=== PATIENT | male | born 1990 | race Caucasian/White ===

== ENCOUNTER 2023-06-16 23:26 | Inpatient (IN) | payer OTHER, SELFPAY ==
[2023-06-16 19:11] VITALS: BP 125/98
--- NOTE | 2023-06-16 20:25 | ED.GENMED ---
History of Present Illness
<Sukhdeep Garcia PA-C - Last Filed: 06/16/23 23:10>
General
Chief Complaint: Skin Problem
Time Seen by Provider: 06/16/23 19:43
Travel History
Have you had any contact with someone who has COVID-19?: No
Do you have any symptoms of coronavirus? Fever > 100 degrees, chills, cough, shortness of breath, sore throat, loss of taste or smell, muscle aches, or headache?: No
History of Present Illness
History of Present Illness:
33-year-old male with history of IV drug abuse (last use 1 week ago) presents to the emergency department for evaluation of right leg pain and swelling and redness developing 2 days ago. Denies any traumatic injuries and denies any injection into
the foot or leg. No fevers or chills. He is unable to bear weight on the leg due to pain. Denies any nausea, vomiting, or diarrhea.
Review of Systems
<Sukhdeep Garcia PA-C - Last Filed: 06/16/23 23:10>
Review of Systems
Allergies reviewed?: Yes
All Other Systems: ROS reviewed and negative except as documented in HPI and ROS
Phy Exam
<Sukhdeep Garcia PA-C - Last Filed: 06/16/23 23:10>
Physical Exam
Physical Exam:
GEN: Well appearing, NAD, WDWN
HEENT: Oral mucosa moist, no scleral icterus
Cardiac: Regular rate and rhythm
Lung: No respiratory distress, no tachypnea
MSK: Severe erythema to the anterior and lateral right lower leg with significant edema. There is no palpable crepitus, moderate tenderness diffusely to the leg. There is no rigidity to the compartments anteriorly however there is pain with
passive stretching of the right ankle anteriorly. Right dorsalis pedis pulses strong, sensation intact
Skin: Good color, no pallor or jaundice, no rashes
Neuro: AO x3, moves all extremities freely
Psych: Calm, cooperative
Course
<Sukhdeep Garcia PA-C - Last Filed: 06/16/23 23:10>
Orders/Labs/Results
Orders:
Orders
06/16/23 19:58
CT Lower Ext W/iv Cont Rt Urgent
Comment:
Reason For Exam: RLE cellulitis, concern for fasciitis
Piperacillin/Tazo 3.375 Gram [Zosyn] 3.375 gram in 50 ml IV NOW
06/16/23 21:02
Complete Blood Count/With Diff Urgent
Comprehensive Metabolic Panel Urgent
Lactic Acid Q4H
Comment: CANCEL 2nd LACTIC ACID IF 1st LACTIC ACID IS LESS THAN 2
Prothrombin Time Urgent
Blood Culture Q30M
FERN Source: Blood/Venous
Specimen Description:
06/16/23 21:31
Vancomycin [Vancocin] 1,500 mg 0.9% Sodium Chloride [Nss] 20 ml 0.9% Sodium Chloride 250 ml [Nss] 250 ml IV NOW
06/16/23 21:48
Blood Culture Q30M
FERN Source: Blood/Venous
Specimen Description:
Abnormal Lab Results
06/16/23
21:02
WBC 34.9 H 10^3/uL
(4.8-10.8)
RBC 4.58 L 10^6/uL
(4.70-6.10)
Hct 38.2 L %
(39.0-52.0)
Abs Immat Gran (auto) 0.4 H 10^3/uL
(0-0.05)
Absolute Neuts (auto) 30.3 H 10^3/uL
(1.4-6.5)
Absolute Monos (auto) 2.5 H 10^3/uL
(0.1-0.6)
Immature Gran % 1.1 H %
(0-0.5)
Neutrophils % 86.9 H %
(42.2-75.2)
Lymphocytes % 4.3 L %
(20.5-51.1)
PT 15.4 H Sec
(11.4-14.6)
Glucose 116 H mg/dl
(70-99)
06/16/23 21:02
06/16/23 21:02
Vital Signs
Initial and Last Documented VS:
Initial Vital Signs
Temp Pulse Resp BP Pulse Ox
98.1 F 103 16 125/98 95
06/16/23 19:11 06/16/23 19:11 06/16/23 19:11 06/16/23 19:11 06/16/23 19:11
Last Documented Vital Signs
Temp Pulse Resp BP Pulse Ox
98.1 F 103 16 125/98 95
06/16/23 19:11 06/16/23 19:11 06/16/23 19:11 06/16/23 19:11 06/16/23 19:11
<Rajani Hernandez, DO - Last Filed: 06/16/23 23:19>
Orders/Labs/Results
Orders:
Orders
06/16/23 19:58
CT Lower Ext W/iv Cont Rt Urgent
Comment:
Reason For Exam: RLE cellulitis, concern for fasciitis
Piperacillin/Tazo 3.375 Gram [Zosyn] 3.375 gram in 50 ml IV NOW
06/16/23 21:02
Complete Blood Count/With Diff Urgent
Comprehensive Metabolic Panel Urgent
Lactic Acid Q4H
Comment: CANCEL 2nd LACTIC ACID IF 1st LACTIC ACID IS LESS THAN 2
Prothrombin Time Urgent
Blood Culture Q30M
FERN Source: Blood/Venous
Specimen Description:
06/16/23 21:31
Vancomycin [Vancocin] 1,500 mg 0.9% Sodium Chloride [Nss] 20 ml 0.9% Sodium Chloride 250 ml [Nss] 250 ml IV NOW
06/16/23 21:48
Blood Culture Q30M
FERN Source: Blood/Venous
Specimen Description:
Abnormal Lab Results
06/16/23
21:02
WBC 34.9 H 10^3/uL
(4.8-10.8)
RBC 4.58 L 10^6/uL
(4.70-6.10)
Hct 38.2 L %
(39.0-52.0)
Abs Immat Gran (auto) 0.4 H 10^3/uL
(0-0.05)
Absolute Neuts (auto) 30.3 H 10^3/uL
(1.4-6.5)
Absolute Monos (auto) 2.5 H 10^3/uL
(0.1-0.6)
Immature Gran % 1.1 H %
(0-0.5)
Neutrophils % 86.9 H %
(42.2-75.2)
Lymphocytes % 4.3 L %
(20.5-51.1)
PT 15.4 H Sec
(11.4-14.6)
Glucose 116 H mg/dl
(70-99)
06/16/23 21:02
06/16/23 21:02
Vital Signs
Initial and Last Documented VS:
Initial Vital Signs
Temp Pulse Resp BP Pulse Ox
98.1 F 103 16 125/98 95
06/16/23 19:11 06/16/23 19:11 06/16/23 19:11 06/16/23 19:11 06/16/23 19:11
Last Documented Vital Signs
Temp Pulse Resp BP Pulse Ox
98.1 F 103 16 125/98 95
06/16/23 19:11 06/16/23 19:11 06/16/23 19:11 06/16/23 19:11 06/16/23 19:11
<Sukhdeep Garcia PA-C - Last Filed: 06/16/23 23:10>
MDM/Problems Addressed
MDM/Problems Addressed:
CT was obtained to evaluate for soft tissue gas to suggest a necrotizing fasciitis. Fortunately no gas was seen however there is significant edema obscuring the fascial planes. Patient does not have a clinical syndrome compatible with compartment
syndrome as he is comfortable at rest, he does have pain with passive plantarflexion however this is likely on the basis of myositis and not indicative of compartment syndrome. Patient be admitted to the hospital service on IV antibiotics, he is
educated regarding the early signs and symptoms of compartment syndrome that would warrant emergent surgical intervention.
<Sukhdeep Garcia PA-C - Last Filed: 06/16/23 23:10>
*Critical Care Note
Total Time (30-74mins, 75-104mins- exclusive of procedures): Not Applicable
ED Attending Note
<Sukhdeep Garcia PA-C - Last Filed: 06/16/23 23:10>
-
Portions of this chart may have been created with voice recognition software.� Occasional wrong word or��sound alike� substitutions may have occurred due to the inherent limitations of voice recognition software.
<Rajani Hernandez DO - Last Filed: 06/16/23 23:19>
ED Attending Note
Patient seen and examined by attending physician: Yes
I performed the substantive portion of visit, reviewed & personally made and approve the management plan that is documented in note by myself or MARIEL.: Yes
I performed a history and physical exam of patient and discussed management with resident, I reviewed resident's note and agree with documented findings and plan of care.: Yes
ED Attending Note:
33-year-old gentleman with history of IV drug abuse, last use 1 week ago, maintained on Suboxone presents with over 24-hour history of right lower leg redness, swelling that has gotten progressively worse over the past 24 hours. No history of
similar episodes in the past. He denies IV drug use in his legs. No history of similar episodes in the past. He does admit to mild chills this afternoon, unsure if he has been running a fever.
He is noted to have very superficial abrasion right anterolateral calf region. Unsure as to how or when this occurred.
Exam remarkable for global violaceous erythema and soft tissue swelling anterolateral right lower leg with moderate brawniness and moderate local tenderness to palpation. There is no significant firmness nor tenseness and overall patient appears
quite comfortable. There is moderate pain with passive dorsiflexion of foot but patient continues to have full range of motion of ankle, toes. No joint effusion of ankle nor knee. There is no lymphangitis.
Dorsalis pedis pulses are full and equal bilaterally. Right foot is warm to touch, distal sensation and strength intact.
There is no ulcers nor necrotic wounds.
Exam consistent with acute cellulitis right lower extremity I suspect source related to superficial abrasion of right lower leg. There is no evidence of track tomas to the lower extremities.
Nothing on exam to suggest compartment syndrome.
CT of the lower leg shows no evidence of subcutaneous gas/fasciitis.
Labs showed significantly elevated white blood cell count but normal lactic acid, unremarkable chemistries.
Blood cultures are pending.
He remains hemodynamically stable. Mildly tachycardic.
Patient meets SIRS criteria.
Patient has been started on broad-spectrum antibiotics.
Will admit to hospitalist service.
Does have history of IV drug abuse but reports last use was 1 week ago, maintained on Suboxone and currently has no evidence of withdrawal.
Will continue Suboxone.
Consider IV Toradol for pain as well as Tylenol.
Discharge Plan
Departure
Patient Disposition: Admit
Date of Disposition: 06/16/23
Time of Disposition: 22:57
Admit to: Med/Surg
Presentation/result/management discussed w/ accepting MD/DO: Hospitalist
Discharge Problem:
Cellulitis of right lower extremity, Sepsis
Prescriptions:
No Action
ibuprofen [Advil] 200 mg Tablet
600 mg PO Q6H PRN (Reason: mild pain)
buprenorphine-naloxone 8-2 mg Film
1.5 film sublingual QPM
Patient Comments:
06/16/2023, pt. filled this med. on 06/09/2023 for 70 films according to PDMP.
buprenorphine-naloxone 8-2 mg Film
1 film sublingual DAILY
Patient Comments:
06/16/2023, pt. filled this med. on 06/09/2023 for 70 films according to PDMP.
Referrals:
NONE,* [Family Provider] -
Interventions
Interventions:
*Risk Screen - Suicide Last Done: 06/16/23 20:28
*General Assessment Last Done: 06/16/23 19:11
*Neglect/Abuse Screening Last Done: 06/16/23 20:28
ED- Fall Risk Assessment Last Done: 06/16/23 20:28
*ED COVID-19 Vaccine History Last Done: 06/16/23 19:11
ED-Skin Assessment Last Done: 06/16/23 20:28
[2023-06-16 20:33] VITALS: BMI 20.1
[2023-06-16 21:10] LABS: % Basophils 0.3 % (0-2); % Eosinophils 0.2 % (0-6); % Immature Granulocytes 1.1 % (0-0.5); % Lymphocytes 4.3 % (20.5-51.1); % Monocytes 7.2 % (1.7-9.3); % Neutrophils 86.9 % (42.2-75.2); Absolute Basophils 0.1 10^3/uL (0-0.2); Absolute Eosinophils 0.1 10^3/uL (0-0.7); Absolute Immature Granulocytes 0.4 10^3/uL (0-0.05); Absolute Lymphocytes 1.5 10^3/uL (1.2-3.4); Absolute Monocytes 2.5 10^3/uL (0.1-0.6); Absolute Neutrophils 30.3 10^3/uL (1.4-6.5); Hematocrit 38.2 % (39.0-52.0); Hemoglobin 13.1 g/dL (13.0-18.0); Mean Corp Hgb Conc. 34.3 g/dL (33.0-37.0); Mean Corpuscular Hgb 28.6 pg (27.0-31.0); Mean Corpuscular Volume 83.4 fL (80.0-94.0); Mean Platelet Volume 10.2 fL (7.4-10.4); Nucleated Red Blood Cells % 0 % (-); Platelet Count 310 10^3/uL (130-400); Red Blood Cell Count 4.58 10^6/uL (4.70-6.10); Red Cell Dist. Width 14.3 % (11.5-14.5); White Blood Cell Count 34.9 10^3/uL (4.8-10.8)
[2023-06-16 21:22] LABS: INR 1.24; Lactic Acid 1.4 mmol/L (0.7-2.0); PT 15.4 Sec (11.4-14.6)
[2023-06-16 21:25] LABS: ALT (SGPT) 28 U/L (0-50); AST (SGOT) 28 U/L (17-59); Albumin 4.1 g/dl (3.5-5.0); Alkaline Phosphatase 94 U/L (38-126); Blood Urea Nitrogen 15 mg/dl (9-20); Calcium 9.1 mg/dl (8.4-10.2); Carbon Dioxide 28 mmol/L (22-30); Chloride 98 mmol/L (98-107); Estimated Creatinine Clearance 95 ml/min; Glucose 116 mg/dl (70-99); Potassium 3.7 mmol/L (3.5-5.1); Sodium 135 mmol/L (135-145); Total Bilirubin 0.9 mg/dl (0.2-1.3); Total Protein 7.3 g/dl (6.3-8.2); eGFR > 60.00
[2023-06-16] MEDS: ZOSYN 50 IV (21:39)
[2023-06-16] MEDS: VANCOCIN 300 ML IV (22:40)
[2023-06-16] MEDS: VANCOCIN 300 MG IV (22:40)
--- NOTE | 2023-06-16 23:18 | HPS.HSE ---
Addendum entered and electronically signed by Glen Santillan MD 06/16/23 23:23:
Patient meets sepsis criteria due to tachycardia and leukocytosis.
Addendum entered and electronically signed by Glen Santillan MD 06/16/23 23:21:
IV fluids ordered.
Original Note:
Family Physician
-
Family Physician: * NONE
Chief Complaint
-
right leg pain
History of Present Illness
33-year-old male past medical history of IV drug use presenting with right leg pain and swelling and redness over the past 2 days. He denies any trauma or injection into the foot or leg. Denies any fevers or chills. Denies any drainage from the
leg. He is unable to bear weight on the leg due to pain. Denies any nausea or vomiting or diarrhea. Denies any cough or sore throat or runny nose. Denies anxiety or tremors.
Patient does use IV drug and he last used fentanyl a week ago. He did not inject into his legs. He also previously used to use cocaine. Smokes 9 cigarettes a day. Denies any alcohol use.
Medical History
Past Medical History
Past Medical History: Reports Other (IV drug use )
Past Surgical History: Reports None
Social History
Tobacco: Smoker
Alcohol: None
Drug: Cocaine, Narcotics and IVDA
Family History
Family History: Not pertinent
Allergies / Home Medications
Allergies reflects when Allergies were last updated in [facility].
Home Medications with original date entered in [facility]
Allergy/Medication List:
Allergies
Allergy/AdvReac Type Severity Reaction Status Date / Time
No Known Allergies Allergy Unverified 06/16/23 21:11
Home Medications
buprenorphine 8 mg-naloxone 2 mg sublingual film 1 film sublingual DAILY 06/16/23
buprenorphine 8 mg-naloxone 2 mg sublingual film 1.5 film sublingual QPM 06/16/23
ibuprofen 200 mg tablet (Advil) 600 mg PO Q6H PRN mild pain 06/16/23
Review of Systems
-
History Source: Patient
A 12 point ROS was completed and negative except as noted: Yes
Constitutional: Reports No Symptoms
EENT: Reports No Symptoms
Respiratory: Reports No Symptoms
Cardiac: Reports No Symptoms
Abdomen/GI: Reports No Symptoms
: Reports No Symptoms
Musculoskeletal: Reports No Symptoms
Skin: Reports No Symptoms
Neurological: Reports No Symptoms
Endocrine: Reports No Symptoms
Hematologic/Lymphatic: Reports No Symptoms
Psych: Reports No Symptoms
Physical Exam
Vital Signs
Vital Signs
Temp Pulse Resp BP Pulse Ox
98.1 F 103 16 125/98 95
06/16/23 19:11 06/16/23 19:11 06/16/23 19:11 06/16/23 19:11 06/16/23 19:11
Physical Exam
General: Well Developed, Well Nourished and No Apparent Distress
HEENT: NormoCephalic, Moist mucous membranes and Atraumatic
Respiratory: Clear
Cardiac: S1/S2 and Regular Rhythm; No Murmur or Rub
GI: Soft, Non Tender, Non Distended and Normal Bowel Sounds; No Organomegaly
Rectal: Deferred by Provider
Musculoskeletal: No Clubbing, No Cyanosis and No Edema
Skin: Other (right lower extremity erythema, swelling and tenderness, scratch present lateral surface of right leg ); No Rash
Neuro: Nonfocal/grossly intact
Laboratory Results
-
06/16/23 21:02
06/16/23 21:02
Laboratory Results
PT 15.4 Sec (11.4-14.6) H 06/16/23 21:02
INR 1.24 06/16/23 21:02
Lactic Acid 1.4 mmol/L (0.7-2.0) 06/16/23 21:02
Total Bilirubin 0.9 mg/dl (0.2-1.3) 06/16/23 21:02
AST 28 U/L (17-59) 06/16/23 21:02
ALT 28 U/L (0-50) 06/16/23 21:02
Alkaline Phosphatase 94 U/L (38-126) 06/16/23 21:02
Data Reviewed
-
Lab Data: Labs Reviewed by me
Old Records: Reviewed
Impression/Plan
-
IMPRESSION:
PLAN:
# Right lower extremity cellulitis/fasciitis suspected secondary to trauma
-Examination consistent with cellulitis without findings concerning for necrotizing fasciitis or compartment syndrome at this time. There is a scratch on the lateral surface of the leg without drainage
-CT scan shows edema extending into the fascial planes into the lateral compartment of the right calf suggesting fasciitis
-Check blood cultures
-Vancomycin/Zosyn
-Surgical evaluation required if worsening symptoms
#History of recent IV drug use with fentanyl
-No signs of withdrawal
-Continue Suboxone
Active smoker
-Nicotine patch
Full code
DVT prophylaxis�heparin
Regular diet
[2023-06-16 23:25] VITALS: BP 142/74
[2023-06-17] VITALS: BP 134/78
[2023-06-17] MEDS: NSS 1000 IV ×4 (00:07→23:03)
[2023-06-17 01:28] VITALS: BP 142/88
[2023-06-17 01:29] VITALS: BMI 20.4
[2023-06-17] MEDS: ZOSYN 50 IV ×4 (04:00→21:57)
--- NOTE | 2023-06-17 04:08 | PTCARENOTE ---
Pt admitted from ED, AAOx3. Pt appropriate, vital signs stable. Left AC IV infusing without issues. Plan for IV zosyn q6 hours. + Nausea/vomiting. RLE red, warm to touch. Pt oriented to room. Bed in lowest position and call pham within reach.
[2023-06-17 06:30] LABS: ALT (SGPT) 21 U/L (0-50); AST (SGOT) 21 U/L (17-59); Albumin 3.3 g/dl (3.5-5.0); Alkaline Phosphatase 103 U/L (38-126); Blood Urea Nitrogen 10 mg/dl (9-20); Calcium 8.5 mg/dl (8.4-10.2); Carbon Dioxide 24 mmol/L (22-30); Chloride 102 mmol/L (98-107); Estimated Creatinine Clearance 109 ml/min; Glucose 99 mg/dl (70-99); Potassium 3.7 mmol/L (3.5-5.1); Sodium 135 mmol/L (135-145); Total Protein 6.1 g/dl (6.3-8.2); eGFR > 60.00
[2023-06-17 06:54] LABS: % Basophils 0.3 % (0-2); % Eosinophils 0.3 % (0-6); % Immature Granulocytes 1.1 % (0-0.5); % Lymphocytes 4.1 % (20.5-51.1); % Monocytes 7.9 % (1.7-9.3); % Neutrophils 86.3 % (42.2-75.2); Absolute Basophils 0.1 10^3/uL (0-0.2); Absolute Eosinophils 0.1 10^3/uL (0-0.7); Absolute Immature Granulocytes 0.4 10^3/uL (0-0.05); Absolute Lymphocytes 1.3 10^3/uL (1.2-3.4); Absolute Monocytes 2.6 10^3/uL (0.1-0.6); Absolute Neutrophils 28.2 10^3/uL (1.4-6.5); Hematocrit 33.7 % (39.0-52.0); Hemoglobin 11.6 g/dL (13.0-18.0); Mean Corp Hgb Conc. 34.4 g/dL (33.0-37.0); Mean Corpuscular Hgb 29.6 pg (27.0-31.0); Mean Platelet Volume 10.6 fL (7.4-10.4); Nucleated Red Blood Cells % 0 % (-); Platelet Count 280 10^3/uL (130-400); Red Blood Cell Count 3.92 10^6/uL (4.70-6.10); Red Cell Dist. Width 14.3 % (11.5-14.5); White Blood Cell Count 32.7 10^3/uL (4.8-10.8)
[2023-06-17 07:37] VITALS: BP 123/84
[2023-06-17] MEDS: HEPARIN 5000 UNITS SC ×2 (07:42→20:18)
[2023-06-17] MEDS: SUBUTEX 8 MG SL (07:42)
[2023-06-17] MEDS: NICODERM TRANSDERMAL 7 MG TRANSDERM (07:43)
--- NOTE | 2023-06-17 10:00 | PHA.VAN.IN ---
Assessment
- Assessment
Renal Function: Appears similar to baseline
Concomitant Antimicrobials: piperacillin/tazobactam
AUC Dosing Plan
- Dosing Variables
Dosing Weight (kg): 59
Dosing CrCl (ml/min): 109
Vd coefficient (L/kg): 0.7
- Empiric Dosing
Initial / Loading Dose: 1500mg - 06/16 22:40
Maintenance Regimen: Vanc 1000mg Q12H - first dose now then 1800
Estimated AUC (mcg*h/mL): 535
Estimated Peak (mcg*h/mL): 35.6
Estimated Trough (mcg/ml): 12.5
Estimated Half Life (H): 7.3
Given IV ZAKIYA, patient may have enhanced clearance - will give 1000mg supplemental dose now then start scheduled dosing at 1800 to booster levels
- Monitoring
No levels ordered at this time: consider levels in next few days
Pharmacokinetics Vancomycin I
- -
Patient Age: 33
Patient Sex: Male
Vancomycin Day #: 1
Indication: Skin And Soft Tissue
Requesting Provider: Dr. Santillan
Pertinent Antimicrobial Allergies:
NKDA
Height / Weight:
Height 5 ft 7 in
Actual Weight 58.967 kg
Pertinent Past Medical History: IV ZAKIYA
- Vital Signs / Lab Results
Temp Pulse Resp BP Pulse Ox
99.3 F 109 16 123/84 98
06/17/23 07:37 06/17/23 07:37 06/17/23 07:37 06/17/23 07:37 06/17/23 09:21
Lab Results - Hematology
06/16/23 06/17/23
21:02 05:38
WBC 34.9 H 32.7 H
Lab Results - Chemistry
06/16/23 06/17/23
21:02 05:38
BUN 15 10
Creatinine 0.9 0.8
Estimated Creat Clear 95 109
Albumin 4.1 3.3 L
06/16/23
21:02
Lactic Acid 1.4
[2023-06-17] MEDS: VANCOCIN 200 IV ×2 (10:37→17:26)
[2023-06-17 15:00] VITALS: BP 124/75
--- NOTE | 2023-06-17 15:04 | W.PN.HOSP.TC ---
Today's Communication/Plan
-
continue abx
LE venous doppler
Assessment / Plan
Assessment / Plan
# Right lower extremity cellulitis/fasciitis suspected secondary to trauma
-Right leg lateral surface healed skin scratch, possibly starting point for the infection
-CT scan shows edema extending into the fascial planes into the lateral compartment of the right calf suggesting fasciitis
-f/u blood culture report
-maintain on IV Vancomycin/Zosyn for another day and will d/c zosyn tomorrow.
#History of recent IV drug use with fentanyl
-No signs of withdrawal
-Continue Suboxone 8 AM and 12 PM
#Active smoker
-Nicotine patch
Full code
DVT prophylaxis�heparin
Anticipated Discharge: 24 - 48 hours
Subjective/Interval History
-
Date of Service: June 17, 2023
continues to have RLE pain/swelling
afebrile overnight
no other issues overnight
Objective Data
-
Labs:
Laboratory Results
06/17/23
05:38
WBC 32.7 H
Hgb 11.6 L
Hct 33.7 L
Plt Count 280
Sodium 135
Potassium 3.7
Chloride 102
Carbon Dioxide 24
BUN 10
Creatinine 0.8
Glucose 99
Calcium 8.5
Total Bilirubin 1.0
AST 21
ALT 21
Alkaline Phosphatase 103
Vital Signs:
Vital Signs
Temp Pulse Resp BP Pulse Ox
99.3 F 109 16 123/84 98
06/17/23 07:37 06/17/23 07:37 06/17/23 07:37 06/17/23 07:37 06/17/23 09:21
I&O
06/16/23 06/17/23 06/18/23
06:59 06:59 06:59
Output Total 450 / 450
Balance -450 / -450
Review of Systems
-
All other systems: Reviewed and negative
Physical Exam
-
General: Negative Appears in Distress
HEENT: Negative Oxygen
Respiratory: Clear to Auscultation
Cardiac: Regular Rhythm and S1/S2; Negative Murmur
GI: Soft, Nontender and Nondistended
Musculoskeletal: Edema, Right Lower Extrem (Erythema)
Neuro: Awake, Alert, Oriented and No Motor Deficits
[2023-06-17] MEDS: TYLENOL 650 MG PO (15:42)
[2023-06-17] MEDS: SUBUTEX 12 MG SL (17:26)
[2023-06-17 23:10] VITALS: BP 141/81
[2023-06-18] MEDS: ZOSYN 50 IV ×2 (04:00→09:04)
--- NOTE | 2023-06-18 04:12 | DOWNTIME ---
There was a [employer] Up Worker Downtime on 06/18/2023 from 0111 to 06/18/2023 at 0405. Downtime documentation of patient's care, including medication administrations, has been reconciled in the electronic record per guidelines. Refer to the
patient's paper chart under the miscellaneous tab to see printed paper medication records and downtime forms.
[2023-06-18 06:07] LABS: Hematocrit 31.3 % (39.0-52.0); Hemoglobin 10.8 g/dL (13.0-18.0); Mean Corp Hgb Conc. 34.5 g/dL (33.0-37.0); Mean Corpuscular Hgb 28.9 pg (27.0-31.0); Mean Corpuscular Volume 83.7 fL (80.0-94.0); Mean Platelet Volume 9.9 fL (7.4-10.4); Platelet Count 294 10^3/uL (130-400); Red Blood Cell Count 3.74 10^6/uL (4.70-6.10); Red Cell Dist. Width 14.2 % (11.5-14.5); White Blood Cell Count 29.1 10^3/uL (4.8-10.8)
[2023-06-18] MEDS: VANCOCIN 200 IV ×2 (06:07→17:33)
[2023-06-18 06:44] LABS: Blood Urea Nitrogen 10 mg/dl (9-20); Calcium 8.7 mg/dl (8.4-10.2); Carbon Dioxide 27 mmol/L (22-30); Chloride 100 mmol/L (98-107); Estimated Creatinine Clearance 87 ml/min; Glucose 100 mg/dl (70-99); Potassium 3.6 mmol/L (3.5-5.1); Sodium 136 mmol/L (135-145); eGFR > 60.00
[2023-06-18 07:00] VITALS: BP 116/72
[2023-06-18] MEDS: SUBUTEX 8 MG SL (08:54)
[2023-06-18] MEDS: NICODERM TRANSDERMAL 7 MG TRANSDERM (08:55)
[2023-06-18] MEDS: HEPARIN 5000 UNITS SC ×2 (08:55→20:23)
[2023-06-18] MEDS: NSS 1000 IV (08:59)
[2023-06-18] MEDS: TYLENOL 650 MG PO ×2 (10:05→23:15)
--- NOTE | 2023-06-18 11:54 | PHA.VAN.FU ---
Vancomycin Assessment / Plan
- Assessment
Renal Function: Stable
WBC's are: Trending Down
Concomitant Antimicrobials: piperacillin/tazobactam
- Dosing Plan
Continue: Vanc 1000mg Q12H
- Monitoring Plan
No level(s) ordered at this time: will hold off on levels for now given possible de-escalation in next 24H
- Follow Up
Pharmacy will continue to follow.
Vancomycin Follow UP
- -
Patient Age: 33
Patient Sex: Male
Vancomycin Day #: 2
Indication: Skin And Soft Tissue
Requesting Provider: Dr. Santillan
Pertinent Antimicrobial Allergies:
NKDA
Height / Weight:
Height 5 ft 7 in
Actual Weight 58.967 kg
Pertinent Past Medical History: IV ZAKIYA
- Vital Signs / Lab Results
Temp Pulse Resp BP Pulse Ox
98.3 F 80 16 116/72 97
06/18/23 07:00 06/18/23 07:00 06/18/23 07:00 06/18/23 07:00 06/18/23 07:00
Lab Results - Hematology
06/16/23 06/17/23 06/18/23
21:02 05:38 05:50
WBC 34.9 H 32.7 H 29.1 H
Lab Results - Chemistry
06/16/23 06/17/23 06/18/23
21:02 05:38 05:50
BUN 15 10 10
Creatinine 0.9 0.8 1.0
Estimated Creat Clear 95 109 87
Albumin 4.1 3.3 L
06/16/23
21:02
Lactic Acid 1.4
Microbiology Results
06/16/23 21:48 Blood Culture - Preliminary
Blood/Venous No Growth in 24 hours- Final report to follow
06/16/23 21:02 Blood Culture - Preliminary
Blood/Venous No Growth in 24 hours- Final report to follow
--- NOTE | 2023-06-18 14:43 | W.PN.HOSP.TC ---
Today's Communication/Plan
-
see note
Assessment / Plan
Assessment / Plan
# Right lower extremity cellulitis/fascitis suspected secondary to trauma
-Right leg lateral surface healed skin scratch, possibly starting point for the infection
-CT scan shows edema extending into the fascial planes into the lateral compartment of the right calf suggesting fasciitis
-Blood cs remains negative.
-discontinue zosyn, continue vancomycin for now.
-Check MRSA screen and probably can be discharged on oral penicillin therapy tomorrow
#History of recent IV drug use with fentanyl
-No signs of withdrawal
-Continue Suboxone 8 AM and 12 PM
#Active smoker
-Nicotine patch
Full code
DVT prophylaxis�heparin
Anticipated Discharge: Within 24 hours
Subjective/Interval History
-
Date of Service: June 18, 2023
Right lower extremity swelling/pain improved
remains afebrile overnight
Objective Data
-
Labs:
Laboratory Results
06/18/23
05:50
WBC 29.1 H
Hgb 10.8 L
Hct 31.3 L
Plt Count 294
Sodium 136
Potassium 3.6
Chloride 100
Carbon Dioxide 27
BUN 10
Creatinine 1.0
Glucose 100 H
Calcium 8.7
Vital Signs:
Vital Signs
Temp Pulse Resp BP Pulse Ox
98.3 F 80 16 116/72 97
06/18/23 07:00 06/18/23 07:00 06/18/23 07:00 06/18/23 07:00 06/18/23 07:00
I&O
06/17/23 06/18/23 06/19/23
06:59 06:59 06:59
Intake Total 1560 / 1560
Output Total 450 / 450 2350 / 2350
Balance -450 / -450 -790 / -790
Review of Systems
-
All other systems: Reviewed and negative
Physical Exam
-
General: Negative Appears in Distress
HEENT: Negative Oxygen
Respiratory: Clear to Auscultation
Cardiac: Regular Rhythm and S1/S2; Negative Murmur
GI: Soft, Nontender and Nondistended
Musculoskeletal: Edema, Right Lower Extrem (Erythema)
Neuro: Awake, Alert, Oriented and No Motor Deficits
[2023-06-18 15:00] VITALS: BP 118/82
--- NOTE | 2023-06-18 15:47 | CM ---
Reviewed chart, met with patient to obtain information for assessment. Patient stated that he lives with his mother and father in a ranch home with one step to enter.
Patient described himself as independent with his ADLs, personal care, dressing and bathing.
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
Patient drives and can get himself to his appointments and does his own shopping. Patient is not currently working.
He denied any DME in his home. He has never had VN services.
Patient has a prescription plan and uses the [facility] pharmacy for all of his medications. He does not have a PCP.
Patient feels that he will be able to return home when he is medically stable and does not feel he will have needs for CM dept.
Plan: Case management will continue to follow and assist with discharge planning. Home when stable.
[2023-06-18] MEDS: SUBUTEX 12 MG SL (17:30)
[2023-06-18 23:00] VITALS: BP 147/81
[2023-06-19] MEDS: VANCOCIN 200 IV (05:54)
[2023-06-19 06:21] LABS: Hematocrit 31.8 % (39.0-52.0); Hemoglobin 10.9 g/dL (13.0-18.0); Mean Corp Hgb Conc. 34.3 g/dL (33.0-37.0); Mean Corpuscular Hgb 28.4 pg (27.0-31.0); Mean Corpuscular Volume 82.8 fL (80.0-94.0); Mean Platelet Volume 9.6 fL (7.4-10.4); Platelet Count 339 10^3/uL (130-400); Red Blood Cell Count 3.84 10^6/uL (4.70-6.10); Red Cell Dist. Width 14.3 % (11.5-14.5); White Blood Cell Count 21.9 10^3/uL (4.8-10.8)
[2023-06-19 07:00] VITALS: BP 126/81
[2023-06-19 07:12] LABS: Blood Urea Nitrogen 11 mg/dl (9-20); Calcium 8.7 mg/dl (8.4-10.2); Carbon Dioxide 26 mmol/L (22-30); Chloride 103 mmol/L (98-107); Estimated Creatinine Clearance 87 ml/min; Glucose 88 mg/dl (70-99); Potassium 3.9 mmol/L (3.5-5.1); Sodium 138 mmol/L (135-145); eGFR > 60.00
[2023-06-19] MEDS: SUBUTEX 8 MG SL (08:23)
[2023-06-19] MEDS: NICODERM TRANSDERMAL 7 MG TRANSDERM (08:23)
[2023-06-19] MEDS: HEPARIN 5000 UNITS SC (08:24)
--- NOTE | 2023-06-19 08:47 | W.PN.HOSP.TC ---
Today's Communication/Plan
-
d/c home
Assessment / Plan
Assessment / Plan
# Right lower extremity cellulitis/fascitis suspected secondary to trauma
-Right leg lateral surface healed skin scratch, possibly starting point for the infection
-CT scan shows edema extending into the fascial planes into the lateral compartment of the right calf suggesting fasciitis
-Blood cs remains negative.
-WBC trending down, today 22K
-MRSA screen pending
-RLE cellulitis improved , discharge on cousre of amoxicllin + doxycycline with h/o of IV drug use
-small puncated wound on right leg lateral side, instructed use tripple antibiotic cream until wound scabs off
-No PCP - proviede contact number of family physician group to establish care.
#History of recent IV drug use with fentanyl
-No signs of withdrawal
-Continue Suboxone 8 AM and 12 PM
#Active smoker
-Nicotine patch
Full code
DVT prophylaxis�heparin
More than 30 minutes spent in discharge including
Final examination of the patient
Summarizing hospital stay
Instructions for continuing care to all relevant caregivers
Preparation of discharge records, prescriptions, and referral forms
Total time spent (in minutes): 38 mins
Anticipated Discharge: Today
Subjective/Interval History
-
Date of Service: June 19, 2023
feeling better
afebrile overnight
no other issues
Objective Data
-
Labs:
Laboratory Results
06/19/23
06:11
WBC 21.9 H
Hgb 10.9 L
Hct 31.8 L
Plt Count 339
Sodium 138
Potassium 3.9
Chloride 103
Carbon Dioxide 26
BUN 11
Creatinine 1.0
Glucose 88
Calcium 8.7
Vital Signs:
Vital Signs
Temp Pulse Resp BP Pulse Ox
98.3 F 86 16 126/81 98
06/19/23 07:00 06/19/23 07:00 06/19/23 07:00 06/19/23 07:00 06/19/23 07:00
I&O
06/18/23 06/19/23 06/20/23
06:59 06:59 06:59
Intake Total 1560 / 1560 1260 / 1260
Output Total 2350 / 2350 1950 / 1950
Balance -790 / -790 -690 / -690
Review of Systems
-
Respiratory: Reports No Symptoms
Cardiac: Reports No Symptoms
Abdomen/GI: Reports No Symptoms
Physical Exam
-
General: Negative Appears in Distress
HEENT: Negative Oxygen
Respiratory: Clear to Auscultation
Cardiac: Regular Rhythm and S1/S2; Negative Murmur
GI: Soft, Nontender and Nondistended
Musculoskeletal: Edema, Right Lower Extrem (Erythema)
Neuro: Awake, Alert, Oriented and No Motor Deficits
--- NOTE | 2023-06-19 16:58 | W.DCSUMMARY ---
Discharge Summary
Discharge Data
Date of Admission: 06/16/23
Date of Discharge: 06/19/23
-
Pending Results: No
Hospital Course
Discharging Physician : Dr Jn Lacy
Disposition : Home
Primary care physician : None
Principal Discharge diagnosis :
Right lower extremity cellulitis/bursitis and sepsis
Chronic Discharge diagnosis :
History of intravenous drug use on Suboxone therapy
Tobacco use
Hospital Course :
Patient is a 33-year-old male with above-mentioned past medical history came to ER with new onset of right leg pain and swelling which is started within 48 hours. Patient have history of IV drug use and have used 1 week back but did not inject in
leg. Patient noted to be septic with significant leukocytosis/febrile. Patient was started on IV vancomycin and Zosyn. Blood cultures were collected. Lower extremity CT scan showing significant swelling without focal abscess. Lower extremity
venous Doppler was negative for blood clot. Patient had slow improvement in symptoms over neck 72 hours. Blood culture remain negative. MRSA screen pending at discharge. After improvement in cellulitis symptoms patient was transition to oral
amoxicillin and doxycycline for another 7 days with active IV drug use history. Patient does not have any primary care physician and was provided contact number of [facility] primary care physician group establish care.
Important imaging findings :
CT Lower extremity
Diffuse subcutaneous edema, greatest laterally.
Edema extending into the fascial planes of the lateral compartment of the right calf, suggesting fasciitis. No convincing CT evidence for a focal collection, with no findings to suggest an abscess.
Procedure findings :
None
Discharge Plan
-
Patient Disposition: Home (Routine Discharge)
Discharge Diagnosis/Procedures: Right leg cellulitis
Condition: Fair
Diet: Regular
Activity: As tolerated
Driving Restrictions: As prior to admission
Bathing Restrictions: OK to Shower
Wound Care: Apply Triple antibiotic paste 3 times/day on Right leg punctate wound until scabs off.
Activity Restrictions/Additional Instructions:
Please call primary care physician [phone] for new patient appointment tel:[phone]
Referrals:
NONE,* [Family Provider] -
Prescriptions:
New
amoxicillin 875 mg tablet
875 mg PO BID Qty: 14 0RF
doxycycline hyclate 100 mg capsule
100 mg PO BID Qty: 14 0RF
Triple Antibiotic 3.5mg-400 unit- 5,000 unit/gram ointment
1 applic topical TID Qty: 14 0RF
Continued
ibuprofen [Advil] 200 mg Tablet
600 mg PO Q6H PRN (Reason: mild pain)
buprenorphine-naloxone 8-2 mg Film
1.5 film sublingual QPM
Patient Comments:
06/16/2023, pt. filled this med. on 06/09/2023 for 70 films according to PDMP.
buprenorphine-naloxone 8-2 mg Film
1 film sublingual DAILY
Patient Comments:
06/16/2023, pt. filled this med. on 06/09/2023 for 70 films according to PDMP.
Discharge Orders:
Discharge Patient (As Directed); Ordered 06/19/23
Ordered By: Jn Lacy
Discharge Date and Time
Discharge Date/Time: 06/19/23 10:53
== END 2023-06-19 10:53 | disposition home or self-care (01) | DRG 872 ==
LOC: 3 WEST ACU 23:26
PROVIDERS: Physician Assistant; ADMITTING PHYSICIAN Hospitalist; ATTENDING PHYSICIAN Hospitalist; EMERGENCY PHYSICIAN Emergency Medicine
DX: A41.9 Sepsis, unspecified organism (principal); L03.115 Cellulitis of right lower limb; F17.210 Nicotine dependence, cigarettes, uncomplicated; M72.9 Fibroblastic disorder, unspecified; F19.10 Other psychoactive substance abuse, uncomplicated
CPT/HCPCS: 73701; 80048; 80053; 83605; 85025; 85027; 85610; 87040; 87070; 93971; 96365; 96366; 96367; 99285; Q9967

== ENCOUNTER 2024-08-18 01:35 | Inpatient (IN) | payer OTHER, SELFPAY ==
[2024-08-17 18:59] VITALS: BP 142/98
[2024-08-17 21:22] VITALS: BP 155/98
[2024-08-17 21:47] VITALS: BMI 18.8
[2024-08-17 21:55] LABS: % Basophils 0.3 % (0-2); % Eosinophils 0.8 % (0-6); % Immature Granulocytes 0.3 % (0-0.5); % Lymphocytes 17.1 % (20.5-51.1); % Monocytes 10.8 % (1.7-9.3); % Neutrophils 70.7 % (42.2-75.2); Absolute Eosinophils 0.1 10^3/uL (0-0.7); Absolute Lymphocytes 2.6 10^3/uL (1.2-3.4); Absolute Monocytes 1.6 10^3/uL (0.1-0.6); Absolute Neutrophils 10.6 10^3/uL (1.4-6.5); Hematocrit 39.3 % (39.0-52.0); Hemoglobin 12.7 g/dL (13.0-18.0); Mean Corp Hgb Conc. 32.3 g/dL (33.0-37.0); Mean Corpuscular Hgb 25.6 pg (27.0-31.0); Mean Corpuscular Volume 79.1 fL (80.0-94.0); Mean Platelet Volume 9.5 fL (7.4-10.4); Nucleated Red Blood Cells % 0 % (-); Platelet Count 341 10^3/uL (130-400); Red Blood Cell Count 4.97 10^6/uL (4.70-6.10); Red Cell Dist. Width 19.1 % (11.5-14.5)
[2024-08-17 22:04] LABS: ALT (SGPT) 44 U/L (0-50); AST (SGOT) 29 U/L (17-59); Alkaline Phosphatase 77 U/L (38-126); Blood Urea Nitrogen 20 mg/dl (9-20); Calcium 9.6 mg/dl (8.4-10.2); Carbon Dioxide 29 mmol/L (22-30); Chloride 98 mmol/L (98-107); Estimated Creatinine Clearance 99 ml/min; Glucose 108 mg/dl (70-99); Lactic Acid 1.3 mmol/L (0.7-2.0); Potassium 4.1 mmol/L (3.5-5.1); Sodium 140 mmol/L (135-145); Total Bilirubin 0.4 mg/dl (0.2-1.3); Total Protein 7.9 g/dl (6.3-8.2); eGFR > 60.00
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
[2024-08-17 23:37] VITALS: BP 139/100
[2024-08-18] VITALS (7 sets, daily range): BP systolic 112–144; BP diastolic 77–100; BMI 18.2
[2024-08-18] MEDS: ZOSYN 100 IV (00:01)
[2024-08-18] MEDS: VANCOCIN 530 MG IV (00:28)
[2024-08-18] MEDS: FLUSH (NSS) 1 FLUSH IV ×3 (00:28→18:53)
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
[2024-08-18 02:51] LABS: Amphetamines Negative (Negative); Barbiturates Negative (Negative); Benzodiazepines Negative (Negative); Buprenorphine Positive (Negative); Cocaine Negative (Negative); Marijuana Negative (Negative); Methadone Negative (Negative); Methamphetamines Negative (Negative); Opiates Negative (Negative); Phencyclidine Negative (Negative); Tricyclic Antidepressants Negative (Negative)
[2024-08-18] MEDS: TORADOL 15 MG IV ×3 (03:07→18:52)
--- NOTE | 2024-08-18 03:33 | PTCARENOTE ---
Patient arrived from ED via stretcher. AAO x 4. OOB ad renetta, with no devices. BP elevated--patient with 7/10 LLE pain. PRN toradol administered. COWS assessment completed. EKG obtained. Dual skin check complete--wound/ostomy consulted for LLE wound.
Decreased sensation reported in LLE, due to prior surgeries. Patient oriented to room. All patient needs met--patient administered a boxed lunch from the unit. No bed alarm. Bed in lowest position. Call pham and personal belongings within reach.
[2024-08-18 03:39] LABS: Fentanyl, Urine Positive (Negative)
[2024-08-18 08:23] LABS: Hematocrit 37.5 % (39.0-52.0); Hemoglobin 12.1 g/dL (13.0-18.0); Mean Corp Hgb Conc. 32.3 g/dL (33.0-37.0); Mean Corpuscular Hgb 25.7 pg (27.0-31.0); Mean Corpuscular Volume 79.6 fL (80.0-94.0); Mean Platelet Volume 9.6 fL (7.4-10.4); Platelet Count 308 10^3/uL (130-400); Red Blood Cell Count 4.71 10^6/uL (4.70-6.10); Red Cell Dist. Width 18.7 % (11.5-14.5)
--- NOTE | 2024-08-18 08:56 | WOUNDNOTE ---
[facility] RN note: Patient admitted with LLE cellulitis. L plantar foot ulcer.
See H&P for complete history.
PMH: IVDA, LLE fasciotomy 10/2023, smoker, neuropathy.
Wound Location and type/assessment: Patient admitted with: L plantar 5th MTH full thickness neuropathic ulcer to subcutaneous layer or deeper. Wound undermines toward L lateral 5th MTH. Small purulent drainage expressed from ulcer. Ulcer pink that
can be visualized.
Appetite: on regular diet.
Pressure redistribution devices in place: [employer] Accumax. Patient is mobile. He says he has a foot drop splint but he hasn't been wearing it too much. He wears sneaker.
Plan: L foot wound culture taken and left at bedside. Dressing applied by [facility] RN office services assistant Cynthia. Instructed patient importance of no pressure during walking on his L forefoot and if he cannot maintain L heel weight bearing only recommend NWB L
foot. Patient verbalized understanding.
Updated including picture tiger texted to Dr. Hogan who approved local wound care, L heel weight bear only, wound culture. Recommended podiatry consult and L foot X ray. Spoke with interline clerk/nurse Katya re: wound culture in patient's room.
Care plan to be updated and will follow as needed.
Recommend follow up with post manager and if needed [facility].
[2024-08-18 09:10] LABS: ALT (SGPT) 45 U/L (0-50); AST (SGOT) 32 U/L (17-59); Albumin 3.9 g/dl (3.5-5.0); Alkaline Phosphatase 66 U/L (38-126); Blood Urea Nitrogen 18 mg/dl (9-20); Calcium 9.6 mg/dl (8.4-10.2); Carbon Dioxide 29 mmol/L (22-30); Chloride 103 mmol/L (98-107); Direct Bilirubin 0.2 mg/dl (0.0-0.4); Estimated Creatinine Clearance 96 ml/min; Glucose 93 mg/dl (70-99); Potassium 4.6 mmol/L (3.5-5.1); Sodium 141 mmol/L (135-145); Total Bilirubin 0.4 mg/dl (0.2-1.3); Total Protein 6.5 g/dl (6.3-8.2); eGFR > 60.00
--- NOTE | 2024-08-18 09:26 | WOUNDNOTE ---
LEFT POSTERIOR FOOT
[2024-08-18 09:27] LABS: Alcohol None Detected
--- NOTE | 2024-08-18 09:28 | WOUNDNOTE ---
BILATERAL LOWER LEGS
--- NOTE | 2024-08-18 09:33 | WOUNDNOTE ---
LEFT PLANTAR 5TH MTH
[2024-08-18] MEDS: ANCEF 10 IV ×3 (09:51→23:08)
[2024-08-18] MEDS: NEURONTIN 100 MG PO ×3 (09:53→21:09)
[2024-08-18] MEDS: FLUSH (NSS) 2 FLUSH IV ×2 (09:57→12:03)
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
[2024-08-18] MEDS: SUBUTEX 8 MG SL ×2 (12:01→19:28)
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
--- NOTE | 2024-08-18 16:50 | CM ---
automotive services manager reviewed patient's chart and met with patient and patient states he lives with his parents in a one story home with one step to enter, patient is independent with adl's and ambulation, no dme, patient has no PCP.
PCP: None
Pharmacy: [facility].
Plan; Home with patents when stable.
[2024-08-18] MEDS: LOVENOX 40 MG SC (18:46)
[2024-08-18] MEDS: BACTROBAN 2% OINTMENT 1 APPLIC TOPICAL (19:28)
--- NOTE | 2024-08-19 03:49 | DOWNTIME ---
There was a [employer] Client Manager Floor Downtime on 08/19/2024 from 0200 to 08/20/2023 at 0318 . Downtime documentation of patient's care, including medication administrations, has been reconciled in the electronic record per guidelines. Refer to the
patient's paper chart under the miscellaneous tab to see printed paper medication records and downtime forms.
[2024-08-19 07:30] VITALS: BP 140/91
[2024-08-19] MEDS: BACTROBAN 2% OINTMENT 1 APPLIC TOPICAL (07:45)
[2024-08-19] MEDS: NEURONTIN 100 MG PO ×3 (07:46→19:57)
[2024-08-19] MEDS: ANCEF 10 IV ×3 (07:46→23:42)
[2024-08-19] MEDS: SUBUTEX 8 MG SL ×2 (07:46→19:57)
[2024-08-19 08:51] LABS: Hematocrit 38.5 % (39.0-52.0); Hemoglobin 12.6 g/dL (13.0-18.0); Mean Corp Hgb Conc. 32.7 g/dL (33.0-37.0); Mean Corpuscular Hgb 25.7 pg (27.0-31.0); Mean Corpuscular Volume 78.4 fL (80.0-94.0); Mean Platelet Volume 9.7 fL (7.4-10.4); Platelet Count 305 10^3/uL (130-400); Red Blood Cell Count 4.91 10^6/uL (4.70-6.10); Red Cell Dist. Width 19.1 % (11.5-14.5); White Blood Cell Count 8.3 10^3/uL (4.8-10.8)
[2024-08-19] MEDS: TORADOL 15 MG IV ×2 (09:23→19:57)
[2024-08-19 09:37] LABS: Blood Urea Nitrogen 25 mg/dl (9-20); Calcium 9.9 mg/dl (8.4-10.2); Carbon Dioxide 25 mmol/L (22-30); Chloride 104 mmol/L (98-107); Estimated Creatinine Clearance 96 ml/min; Glucose 81 mg/dl (70-99); Potassium 5.7 mmol/L (3.5-5.1); Sodium 141 mmol/L (135-145); eGFR > 60.00
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
--- NOTE | 2024-08-19 11:46 | PN.CDI ---
CDI
- -
CDI:
Physician Documentation Request
Admit Date: 08/18/24 01:35
Dear Doctor Yannick,
08/18 Podiatry note states 'LT plantar callus debrided,'
Could you provide, in the progress notes further clarification regarding the debridement.
Please specify the type of debridement performed:
1. Excisional Debridement - defined as removal by excision of devitalized tissue, necrosis or slough
2. Non-excisional debridement - defined as removal of devitalized tissue, necrosis or slough by such methods as irrigation, brushing, scrubbing or washing.
For excisional or non-excisional, please also include:
1. Depth of debridement (skin, subcutaneous tissue, fascia, muscle, bone etc)
2. Size and appearance of the wound (L, W, D, color of wound, drainage)
Use of terms such as suspected, likely, concern for, or probable (associated with a specific diagnosis that is being evaluated, monitored, or treated as if it exists) are acceptable and can be coded in the inpatient setting, when documented at the
time of discharge.
Thank you,
Lyndsay Lion RN, BSN
CDI Specialist
tiger text
Please use your independent medical judgment in providing your response.
--- NOTE | 2024-08-19 11:58 | CM ---
Patient seen bedside.
patient for possible d/c tomorrow.
Patient stated he would be able to complete his own wound care.
Declined VN.
Family will transport.
Plan: home no needs.
[2024-08-19] MEDS: LOKELMA 10 GRAM PO (12:11)
[2024-08-19 16:00] VITALS: BP 129/82
--- NOTE | 2024-08-19 16:12 | WOUNDNOTE ---
[facility] RN note: Clarified L foot wound care for patient upon discharge with Dr. Lanier (L foot wound-clean with soap and water, Bactroban and dry gauze daily until healed. L heel weight bear only). Discharge instructions updated in discharge
instructions.
[2024-08-19] MEDS: LOVENOX 40 MG SC (17:35)
[2024-08-19 23:43] VITALS: BP 123/81
[2024-08-20 07:20] VITALS: BP 122/85
[2024-08-20] MEDS: BACTROBAN 2% OINTMENT 1 APPLIC TOPICAL (08:04)
[2024-08-20] MEDS: ANCEF 10 IV (08:04)
[2024-08-20] MEDS: NEURONTIN 100 MG PO (08:05)
[2024-08-20] MEDS: SUBUTEX 8 MG SL (08:07)
[2024-08-20 08:43] LABS: Hematocrit 38.6 % (39.0-52.0); Hemoglobin 12.3 g/dL (13.0-18.0); Mean Corp Hgb Conc. 31.9 g/dL (33.0-37.0); Mean Corpuscular Hgb 25.7 pg (27.0-31.0); Mean Corpuscular Volume 80.8 fL (80.0-94.0); Mean Platelet Volume 10.4 fL (7.4-10.4); Platelet Count 330 10^3/uL (130-400); Red Blood Cell Count 4.78 10^6/uL (4.70-6.10); Red Cell Dist. Width 18.6 % (11.5-14.5); White Blood Cell Count 7.3 10^3/uL (4.8-10.8)
[2024-08-20 09:22] LABS: Blood Urea Nitrogen 21 mg/dl (9-20); Calcium 9.5 mg/dl (8.4-10.2); Carbon Dioxide 27 mmol/L (22-30); Chloride 106 mmol/L (98-107); Estimated Creatinine Clearance 96 ml/min; Glucose 83 mg/dl (70-99); Potassium 4.6 mmol/L (3.5-5.1); Sodium 142 mmol/L (135-145); eGFR > 60.00
--- NOTE | 2024-08-20 10:48 | PN.CDI ---
CDI
- -
CDI:
Physician Documentation Request
Admit Date: 08/18/24 01:35
Dear Doctor Edison,
Please review the following and provide your response in the progress notes.
Clinical Indicators:
Height: 5 ft 7 inches
Weight:116 (08/18)
BMI: 18.2
Other Clinical Notes:08/[address] RD note 'underweight (<18.5)'
[place] provide an associated diagnosis related to the abnormal BMI:
BMI < or = to 19
Underweight
Weight Loss
Cachectic
Anorexia
- BMI is not significant
- Other
Use of terms such as suspected, likely, concern for, or probable (associated with a specific diagnosis that is being evaluated, monitored, or treated as if it exists) are acceptable and can be coded in the inpatient setting, when documented at the
time of discharge.
Thank you,
Lyndsay Lion RN, BSN
CDI Specialist
tiger text
Please use your independent medical judgment in providing your response.
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
--- NOTE | 2024-08-20 12:09 | W.DS.TRANS ---
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
-
Discharge Instructions:
Discharge Diagnosis/Procedures LLE cellulitis with plantar wound
Diet Regular
Activity As tolerated
Other Services VN
Instructions:
Stand-Alone Forms:
Changes to Home Medications: No
Discharge Medications:
DC Medications w/original date entered in [employer]
buprenorphine 8 mg-naloxone 2 mg sublingual film 1 film sublingual BID opioid use disorder 06/16/23
gabapentin 100 mg capsule 100 mg PO TID Neurological Condition 08/17/24
cephalexin 500 mg capsule 500 mg PO QID #40 caps 08/20/24
levofloxacin 750 mg tablet 750 mg PO DAILY #10 tabs 08/20/24
mupirocin 2 % topical ointment 1 applic topical DAILY #22 grams 08/20/24
Home Medication Changes
Pending Results: No
Total time spent discharging patient (in min): 42
--- NOTE | 2024-08-20 12:21 | CM ---
Chart reviewed and plan is to home with parents, patient has declined vn services at discharge.
Plan; Home with parents.
== END 2024-08-20 13:56 | disposition home or self-care (01) | DRG 571 ==
LOC: 4 WEST ACU 01:35
PROVIDERS: Emergency Medicine; ADMITTING PHYSICIAN Hospitalist; ATTENDING PHYSICIAN Internal Medicine; CONSULT PHYSICIAN Podiatrist Foot & Ankle Surgery; EMERGENCY PHYSICIAN Student in an Organized Health Care Education/Training Program
PROC: 0JBR0ZZ Excision of Left Foot Subcutaneous Tissue and Fascia, Open Approach (ICD-10-PCS; 2024-08-18)
DX: L03.116 Cellulitis of left lower limb (principal); Z68.1 Body mass index [BMI] 19.9 or less, adult; F17.200 Nicotine dependence, unspecified, uncomplicated; E87.5 Hyperkalemia; R63.6 Underweight; F19.10 Other psychoactive substance abuse, uncomplicated
CPT/HCPCS: 73590; 73630; 80048; 80053; 80306; 80307; 82077; 82248; 83605; 85025; 85027; 87070; 87077; 87147; 87186; 87205; 93005; 93971; 99285